=== PATIENT | female | born 1980 | race Caucasian/White ===

== ENCOUNTER 2017-06-24 15:01 | Emergency (ER) | payer SELFPAY ==
[2017-06-24 15:07] VITALS: BP 126/73; BMI 18.6
--- NOTE | 2017-06-24 15:48 | DR.GENAD ---
HPI - PCP Primary Care Physician: DARCY - Complaint/Symptoms Chief Complaint:: PT. STATES 2 MONTHS AGO SHE WAS SEEN IN THE ER IN [facility] DUE TO NECK PAIN AND POSSIBLE ALLERGIC REACTION FROM HAIR DYE. PT. WAS PLACED ON ANTIBIOITCS. PT. STATES SHE HAS NOT FELT NORMAL SINCE. PT. C/O LYMPH NODES SWELLING TO HER NECK AND PAIN WELL PAIN TO HER UNDERARMS. PT. SAYS SHE HAS NIGHT SWEATS AND HAS CHILLS. PT. IS CURRENTLY ON STERIODS AND ANTIBIOTICS. PT. HAS ALSO EXPERIENCED SOME WEIGHT LOSS IN THE PAST 2 MONTHS. 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: No Isolation: Standard PE - Vital Signs Vitals: Temperature 98.7 F Pulse Rate 87 Respiratory Rate 18 Blood Pressure 126/73 O2 Sat by Pulse Oximetry 98 ROR - Labs Reviewed Result Diagrams: 06/24/17 16:00 06/24/17 16:00 Laboratory: WBC 18.7 X10^3/uL (3.6-10.0) H 06/24/17 16:00 RBC 4.54 X10^6/uL (3.5-5.4) 06/24/17 16:00 Hgb 14.3 g/dL (12.0-16.0) 06/24/17 16:00 Hct 41.5 % (36.0-47.0) 06/24/17 16:00 MCV 91.4 fL (80.0-100.0) 06/24/17 16:00 MCH 31.5 pg (27.0-34.0) 06/24/17 16:00 MCHC 34.4 g/dL (33.0-35.0) 06/24/17 16:00 RDW 13.4 % (11.6-16.5) 06/24/17 16:00 Plt Count 310 X10^3/uL (150.0-450.0) 06/24/17 16:00 Plt Count Comment Adequate (ADEQUATE) 06/24/17 16:00 MPV 8.4 fL (7.4-11.0) 06/24/17 16:00 Neut % 91.6 % (42.0-75.0) H 06/24/17 16:00 Lymph % 6.3 % (21.0-51.0) L 06/24/17 16:00 [place] % 1.6 % (0.0-13.0) 06/24/17 16:00 Eos % 0.1 % (0.9-2.9) L 06/24/17 16:00 Baso % 0.4 % (0.2-1.0) 06/24/17 16:00 Neut # 17.1 x10^3/uL (2.2-4.8) H 06/24/17 16:00 Lymph # 1.2 X10^3/uL (1.3-2.9) L 06/24/17 16:00 [place] # 0.3 x10^3/uL (0.3-0.8) 06/24/17 16:00 Eos # 0.0 x10^3/uL (0.0-0.2) 06/24/17 16:00 Baso # 0.1 X10^3/uL (0.0-0.1) 06/24/17 16:00 Absolute Nucleated RBC 0.0 /100WBC 06/24/17 16:00 Total Counted 100 06/24/17 16:00 Neutrophils % (Manual) 90 % (39-76) H 06/24/17 16:00 Band Neutrophils % 2 % (0-10) 06/24/17 16:00 Lymphocytes % (Manual) 6 % (13-43) L 06/24/17 16:00 Monocytes % (Manual) 2 % (4-9) L 06/24/17 16:00 Plt Morphology Comment Normal (NORMAL) 06/24/17 16:00 RBC Morphology Normal (NORMAL) 06/24/17 16:00 Sodium 138 mmol/L (136-145) 06/24/17 16:00 Corrected Sodium 139 mmol/L (136-145) 06/24/17 16:00 Potassium 4.5 mmol/L (3.5-5.1) 06/24/17 16:00 Chloride 101 mmol/L (98-107) 06/24/17 16:00 Carbon Dioxide 32.0 mmol/L (21-32) 06/24/17 16:00 BUN 21 mg/dL (7-18) H 06/24/17 16:00 Creatinine 0.89 mg/dL (0.55-1.02) 06/24/17 16:00 Est GFR (MDRD) Af Amer > 60 (>60) 06/24/17 16:00 Est GFR (MDRD) Non-Af > 60 (>60) 06/24/17 16:00 Glucose 137 mg/dL (65-99) H 06/24/17 16:00 Calcium 9.2 mg/dL (8.5-10.1) 06/24/17 16:00 Corrected Calcium TNP 06/24/17 16:00 Total Bilirubin 0.30 mg/dL (0.2-1.0) 06/24/17 16:00 AST 13 Units/L (15-37) L 06/24/17 16:00 ALT 21 Units/L (12-78) 06/24/17 16:00 Alkaline Phosphatase 62 Units/L (46-116) 06/24/17 16:00 C-Reactive Protein < 0.50 mg/L (0-3.0) 06/24/17 16:00 Total Protein 7.9 g/dL (6.4-8.2) 06/24/17 16:00 Albumin 4.5 g/dL (3.4-5.0) 06/24/17 16:00 Globulin 3.4 g/dL (2.5-4.5) 06/24/17 16:00 Albumin/Globulin Ratio 1.3 Ratio (1.1-2.1) 06/24/17 16:00 TSH 3rd Generation 0.699 uIU/mL (0.358-3.74) 06/24/17 16:00 Specimen Type Clean catch urine 06/24/17 15:49 Urine Color Pale yellow (YELLOW) 06/24/17 15:49 Urine Appearance Clear (CLEAR) 06/24/17 15:49 Urine pH 7.0 (5.0 - 8.0) 06/24/17 15:49 Ur Specific [place] 1.010 (1.000-1.030) 06/24/17 15:49 Urine Protein Negative (NEGATIVE) 06/24/17 15:49 Urine Glucose (UA) Negative (NEGATIVE) 06/24/17 15:49 Urine Ketones Negative (NEGATIVE) 06/24/17 15:49 Urine Occult Blood 1+ (NEGATIVE) 06/24/17 15:49 Urine Nitrite Negative (NEGATIVE) 06/24/17 15:49 Urine Bilirubin Negative (NEGATIVE) 06/24/17 15:49 Urine Urobilinogen Normal (NORMAL) 06/24/17 15:49 Ur Leukocyte Esterase Negative (NEGATIVE) 06/24/17 15:49 Urine RBC 0-1 /HPF (NEGATIVE) 06/24/17 15:49 Urine WBC None seen /HPF (NEGATIVE) 06/24/17 15:49 Ur Squamous Epith Cells Negative /HPF (NEGATIVE) 06/24/17 15:49 Amorphous Sediment Trace /HPF (NEGATIVE) 06/24/17 15:49 Urine Bacteria Negative /HPF (NEGATIVE) 06/24/17 15:49 Ur Culture Indicated? No/not indicated 06/24/17 15:49 Monoscreen Negative (NEGATIVE) 06/24/17 16:00 - Discharge Plan Condition: Stable - Follow ups/Referrals Follow ups/Referrals: FANTA TAVERAS [Primary Care Provider] - 06/25/17 - Instructions Instructions: Leukocytosis, Lymphadenopathy, Musculoskeletal Pain Additional Instructions: RETURN TO ED IF WORSE. YOU ALSO GENERALIZE WEAKNESS AND NECK PAIN.
[2017-06-24 16:00] LABS: BILIRUBIN,URINE NEGATIVE (NEGATIVE); BLOOD/HEMOGLOBIN,URINE 1+ (NEGATIVE); GLUCOSE, URINE NEGATIVE (NEGATIVE); KETONES,URINE NEGATIVE (NEGATIVE); LEUKOCYTE ESTERASE ,URINE NEGATIVE (NEGATIVE); NITRITES,URINE NEGATIVE (NEGATIVE); PROTEIN,URINE NEGATIVE (NEGATIVE); UROBILINOGEN,URINE NORMAL (NORMAL)
[2017-06-24 16:08] LABS: BASOPHILS # (AUTO) 0.1 X10^3/uL (0.0-0.1); BASOPHILS % (AUTO) 0.4 % (0.2-1.0); EOSINOPHILS % (AUTO) 0.1 % (0.9-2.9); HEMATOCRIT 41.5 % (36.0-47.0); HEMOGLOBIN 14.3 g/dL (12.0-16.0); LYMPHOCYTES # (AUTO) 1.2 X10^3/uL (1.3-2.9); LYMPHOCYTES % (AUTO) 6.3 % (21.0-51.0); MEAN CORPUSCULAR HEMOGLOBIN 31.5 pg (27.0-34.0); MEAN CORPUSCULAR HGB CONC 34.4 g/dL (33.0-35.0); MEAN CORPUSCULAR VOLUME 91.4 fL (80.0-100.0); MEAN PLATELET VOLUME 8.4 fL (7.4-11.0); MONOCYTES # (AUTO) 0.3 x10^3/uL (0.3-0.8); MONOCYTES % (AUTO) 1.6 % (0.0-13.0); NEUTROPHILS # (AUTO) 17.1 x10^3/uL (2.2-4.8); NEUTROPHILS % (AUTO) 91.6 % (42.0-75.0); PLATELET COUNT 310 X10^3/uL (150.0-450.0); RED BLOOD COUNT 4.54 X10^6/uL (3.5-5.4); RED CELL DISTRIBUTION WIDTH 13.4 % (11.6-16.5); WHITE BLOOD COUNT 18.7 X10^3/uL (3.6-10.0)
[2017-06-24 16:09] LABS: AMORPHOUS SEDIMENT,UR TRACE /HPF (NEGATIVE); APPEARANCE,URINE CLEAR (CLEAR); BACTERIA,URINE NEGATIVE /HPF (NEGATIVE); COLOR,URINE PALE YELLOW (YELLOW); RBC,URINE 0-1 /HPF (NEGATIVE); SQUAMOUS EPITHELIAL CELL,UR NEGATIVE /HPF (NEGATIVE)
[2017-06-24 16:24] LABS: BAND NEUTROPHILS % 2 % (0-10); PLATELET MORPHOLOGY COMMENT NORMAL (NORMAL)
--- NOTE | 2017-06-24 16:27 | CT ---
CT SOFT TISSUE NECK WITHOUT CONTRAST CLINICAL HISTORY: 36-year-old female with left-sided neck pain and swollen lymph nodes for 2 months. COMPARISON: None. TECHNIQUE: Multiple axial CT images were obtained from the supraorbital region to the aortic arch wi thout the administration of contrast. The images were reformatted in the sagittal and coronal planes. FINDINGS: Study is limited secondary to lack of intravenous contrast. The visualized brain parenchyma is normal in appearance. The orbits and globes are normal in appearan ce. The paranasal sinuses, mastoids, and tympanic cavities are clear. The nasal cavity, nasopharynx, oropharynx, hypopharynx, supra- and infraglottic larynx are normal. Neck spaces are normal. Scattered , nonspecific, nonenlarged, normal appearing lymph nodes throughout the neck. The trachea is normal i n appearance. The thyroid gland is normal in attenuation and morphology. Vascular structures are incompletely evalu ated, but grossly normal in appearance. The lung apices are clear. The great vessels and imaged super ior mediastinum are normal in appearance. Osseous structures are normal in appearance. IMPRESSION: Unremarkable CT soft tissue neck. Reported By:
[2017-06-24 16:31] LABS: ALANINE AMINOTRANSFERASE 21 Units/L (12-78); ALBUMIN 4.5 g/dL (3.4-5.0); ALKALINE PHOSPHATASE 62 Units/L (46-116); ASPARTATE AMINO TRANSFERASE 13 Units/L (15-37); BLOOD UREA NITROGEN 21 mg/dL (7-18); CALCIUM 9.2 mg/dL (8.5-10.1); CHLORIDE 101 mmol/L (98-107); COR NA(FOR HYPERGLY) 139 mmol/L (136-145); CREATININE 0.89 mg/dL (0.55-1.02); SODIUM 138 mmol/L (136-145); TOTAL PROTEIN 7.9 g/dL (6.4-8.2); eGFR BLACK RACES > 60 (>60); eGFR NON BLACK RACES > 60 (>60)
[2017-06-24 16:32] LABS: TSH (3RD GENERATION) 0.699 uIU/mL (0.358-3.74)
--- NOTE | 2017-06-24 17:36 | RAD ---
HISTORY: Cough. Single-view of the chest. Comparison: None. Findings: The trachea is midline. The cardiac silhouette is unremarkable. The lungs are hyperinflated with in creased perihilar interstitial opacities and associated bronchial cuffing; findings which can be seen with central bronchitis of the tracheobronchial tree versus small airways disease. Please correlate. However, there is no lobar pneumonia or pulmonary mass. The lungs are otherwise clear without focal infiltrate or pleural effusion. The bony thorax is unremarkable. IMPRESSION: No lobar infiltrates or effusions seen. Radiographic findings of small airways disease, as above. Reported By:
== END 2017-06-24 18:00 | disposition home or self-care (01) ==
LOC: ER 15:16
DX: R59.1 Generalized enlarged lymph nodes (principal); D72.829 Elevated white blood cell count, unspecified; M79.1 Myalgia
CPT/HCPCS: 36415; 70490; 71045; 80053; 81001; 84443; 85025; 86140; 86308; 99282; 99283